=== PATIENT | male | born 1950 | race Caucasian/White ===

== ENCOUNTER → 2024-03-18 13:51 | Outpatient (CLI) | payer MEDICARE, SELFPAY ==
--- NOTE | 2024-03-18 | DI.NM.S_ITS ---
PROCEDURE: NM EXERCISE TREADMILL NON NUC COMPARISON: None. INDICATIONS: PSVT FINDINGS: Rest ECG sinus rhythm, 79 bpm. Enrique protocol 9:11, maximum heart rate 173 bpm (118% peak predicted), maximum blood pressure 162/90, 10.1 METS, ARLYN -45%. Exercise ECG sinus tachycardia, 1.5 to [address] segment depressions V4-V6. Occasional PVCs noted in recovery. The patient did not complain of exercise-induced chest discomfort. IMPRESSION: Abnormal study. Exercise-induced ECG changes consistent with inducible ischemia. Normal hemodynamic response. Very good exercise capacity. Dictated by: Mili Salas D.O. on 03/18/2024 at 17:16 Approved by: Mili Salas D.O. on 03/18/2024 at 17:19
--- NOTE | 2024-03-18 | DI.ECHO.S_ITS ---
[facility] : : [address] : : [place] : : [id number] : : Phone: [phone] Echocardiogram Report + + :Name: SAGE PATE Study Date: 03/18/2024 Height: 73 in : :[facility] ReadingLocation: Weight: 175 lb : : Gender: Male BSA: 2.0 m2 : :: 1950 Age: 73 yrs BP: 152/99 mmHg: :Reason For Study: psvt : :Ordering Physician: YAYO DELUCA Performed By: Trisha Mae : :Referring: YAYO DELUCA : + + Interpretation Summary 1. The left ventricular contractility is normal. Estimate ejection fraction is greater than 55% with no segmental wall motion abnormalities. Borderline concentric left ventricular hypertrophy. Grade 1 diastolic dysfunction. 2. The right ventricular contractility is normal. 3. The left atrium is mildly dilated. The right ventricular cavity is also mildly dilated. The left ventricular cavity appears to be small and may be underfilled. 4. No significant valvular abnormalities. 5. No obvious intracardiac shunts. 6. No obvious intracardiac masses nor thrombi. 7. No hemodynamically significant pericardial effusion. 8. Low right-sided filling pressures. Conclusion: Normal biventricular systolic function with mildly dilated right ventricle and no significant valvular abnormalities. The left ventricular cavity is small and may reflect an underfilled state. Procedure: A two-dimensional transthoracic echocardiogram with color flow and Doppler was performed. The study quality was technically adequate. There is no prior echocardiogram noted for this patient. The heart rate ranged between 71-101 bpm during the study. Left Ventricle: Left ventricular wall thickness is at the upper limits of normal. The ejection fraction is estimated to be 55-60%. Diastolic parameters suggest a relaxation abnormality of the left ventricle, consistent with probable normal filling pressures. Right Ventricle: The right ventricle is mildly dilated. The right ventricular systolic function is normal. Atria: The left atrium is mildly dilated. Right atrial size is normal. There is no Doppler evidence for an interatrial shunt. Mitral Valve: The mitral valve leaflets appear normal. There is no evidence of stenosis, fluttering, or prolapse. There is trace mitral regurgitation. Aortic Valve: The aortic valve is trileaflet. The aortic valve opens well. There is no aortic valve stenosis. There is trace aortic regurgitation. Tricuspid Valve: The tricuspid valve leaflets are thin and pliable. There is a trace or physiologic amount of tricuspid regurgitation. Pulmonary artery pressures cannot be estimated because of the lack of a measurable TR jet velocity but the IVC suggests a CVP of around 3 mmHg. Pulmonic Valve: The pulmonic valve is not well visualized. There is no pulmonic valvular regurgitation. Great Vessels: The aortic root is normal size. The ascending aorta is at the upper limits of normal in size. The aortic arch is normal in size. The pulmonary artery is not well visualized, but is probably normal size. The IVC is of normal diameter and collapses greater than 50% with a sniff. This suggests a low right atrial pressure of 3 mm Hg. Pericardium/ Pleura There is an anterior echo-free space consistent with a fat pad. There is no pericardial effusion. There is no pleural effusion. MMode/2D Measurements & Calculations LVIDd: 3.7 cm LVOT diam: 2.5 cm LVIDs: 1.9 cm Ao root diam: 3.6 cm FS: 48.7 % asc Aorta Diam: 3.8 cm EPSS: 0.27 cm Ao Arch Diam (Prox Trans): 2.3 cm IVSd: 1.1 cm LVPWd: 1.0 cm LV bowden. diameter/BSA (cm/m^2): 1.8 LV sys. diameter/BSA (cm/m^2): 0.93 LA A2 area: 22.2 cm2 RA long axis: 6.6 cm LA A4 area: 18.3 cm2 RA area: 21.6 cm2 LA length (vol): 4.8 cm RA vol: 60.2 ml LA vol: 71.4 ml RA : 29.6 ml/m2 LA vol index: 35.1 ml/m2 IVC diam: 1.8 cm TAPSE: 2.6 cm Doppler Measurements & Calculations Ao V2 max: 161.5 cm/sec LVOT Max Amilcar: 118.6 cm/sec Ao V2 mean: 103.2 cm/sec LV V1 max P.6 mmHg Ao max P.6 mmHg LV V1 VTI: 20.0 cm Ao mean P.9 mmHg RE(I,D): 4.1 cm2 Ao V2 VTI: 24.4 cm RE(V,D): 3.7 cm2 sev ratio: 0.82 RE indexed to BSA (cm^2/m^2): 2.0 MV E max amilcar: 53.1 cm/sec PA V2 max: 83.4 cm/sec MV A max amilcar: 91.5 cm/sec PA V2 mean: 59.7 cm/sec MV E/A: 0.58 PA mean P.5 mmHg Med Peak E' Amilcar: 5.1 cm/sec PA pr(Accel): 29.3 mmHg E/E' med: 10.4 Lat Peak E' Amilcar: 7.7 cm/sec E/E' lat: 6.9 E/e' average: 8.6 MV dec time: 0.19 sec MVA(VTI): 3.9 cm2 MV V2 mean: 70.1 cm/sec SV(LVOT): 100.5 ml MV mean P.2 mmHg MV V2 VTI: 25.6 cm Reading Physician:
== END ==
PROVIDERS: PCP Nurse Practitioner Family; Referring Provider Internal Medicine; Visit Provider Internal Medicine
DX: I47.10 Supraventricular tachycardia, unspecified (principal); R94.39 Abnormal result of other cardiovascular function study
CPT/HCPCS: 93017; 93306